=== PATIENT | male | born 1975 | race Caucasian/White ===

== ENCOUNTER → 2016-10-08 | Outpatient (CLI) | payer MEDICARE, OTHER ==
[~2016-10-08] MED LIST: DEXTROAMP-AMPHE25 MG PO; ELIMITE60 GM TOP; IBUPROFEN600 MG PO; IBUPROFEN800 MG PO; NAPROSYN500 MG PO; NO MEDICATIONS; PEN-VEE K PO; RITALIN PO; VICODIN 5/1 TAB 5/50 PO; VICODIN PO; ZYRTEC PO
--- NOTE | ~2016-10-08 | CR63 ---
[facility] A Service of [facility] & [facility] RADIOLOGY TEXT RESULTS PATIENT: JOBY FROST LOCATION: [facility] : 79 UNIT #: [id number] AGE: [address]: Christine Hurst MD SEX: M ORDER DR: [id number] [address] [id number] O MR#: [id number] Acc #: [id number] NAME: JOBY FROST : 1975 SEX: M STUDY DATE/TIME: 10/08/2016 13:59 UNIT: [facility] ROOM: STUDY DESCRIPTION: CR Chest 2 View Attending Physician: Christine Hurst M.D. Referring Physician: Christine Hurst M.D. Ordering Physician: Christine Hurst M.D. Primary Care Physician: Yayo Stevens M.D. MEDICAL IMAGING REPORT This report is preliminary unless electronic signature is present. EXAM Chest, PA and lateral, 10/08/2016. HISTORY Cough for 2 days and chest pain with short of breath. Smoking history for 30 years. FINDINGS PA and lateral examination of the chest upright shows a good expansion of the parenchyma with a normal distribution of the pulmonary vascularity. There is no indication of congestion, effusion, infiltrate, tumor, or nodular density. The pleural reflections and diaphragmatic contours are normal. The cardiac silhouette and mediastinal anatomy is within normal limits. IMPRESSION Normal chest. Dictated by... Del Hart M.D. THIS IS AN ELECTRONICALLY VERIFIED REPORT Del Hart M.D. at 10/09/2016 8:05 AM Tl TD: 10/08/2016 16:58 JOB #: [id number] MEDICAL IMAGING REPORT Page 1 of 1
== END | disposition home or self-care (01) ==
LOC: SRAD 13:47
DX: R05 Cough (principal); F17.210 Nicotine dependence, cigarettes, uncomplicated
CPT/HCPCS: 71020